=== PATIENT | male | born 1965 | race Caucasian/White ===

== ENCOUNTER 2020-01-15 12:25 | Inpatient (IN) | payer OTHER ==
--- NOTE | 2020-01-15 13:24 | BHS.RME ---
Substance Use & Tx History - Substance Use History Alcohol Substance amount: six pack beer Frequency of use: Daily Substance route: Oral Date of Last Use: 01/14/20 Heroin Substance amount: 3 bundles Frequency of use: Daily Substance route: Inhalation (ex: sniffing or snorting) Date of Last Use: 01/15/20 Marijuana/Hashish Substance amount: 1 blunt Frequency of use: Daily Substance route: Smoking Date of Last Use: 01/14/20 Nicotine Substance amount: 3-4 ciggs Frequency of use: Daily Substance route: Smoking Date of Last Use: 01/15/20 Physical/Psych/Mental Status - Behavior General Behavior: Increased activity (restlessness, agitation) Eye Contact: Normal - Cooperativeness Cooperativeness: Cooperative - Thinking Thought Processes: Tight, Logical, Goal Directed - Physical Health Problems Is patient presently having any pain?: No Does patient presently have any injuries (include location): No Does patient currently have a fever: No Is patient : No COWS - Scale Resting Pulse: 0= ID 80 or Below Sweatin=Flushed/Facial Moisture Restless Observation: 1= Difficult to Sit Still Pupil Size: 1= Pupils >than Normal Bone or Joint Aches: 2= Severe Diffuse Aches Runny Nose/ Eye Tearin= None GI Upset > 30mins: 2= Nausea/Diarrhea Tremor Observation: 1= Tremor [place], Not Seen Yawning Observation: 1= 1-2x During Session Anxiety or Irritability: 1=Feels Anxious/Irritable Goose Flesh Skin: 3=Piloerection COWS Score: 14 CIWA Nausea/Vomitin Muscle Tremors: 3 Anxiety: 3 Agitation: 2 Paroxysmal Sweats: 1-Minimal Palms Moist Orientation: 1-Uncertain about Date Tacttile Disturbances: 0-None Auditory Disturbances: 0-None Visual Disturbances: 0-None Headache: 2-Mild CIWA-Ar Total Score: 14
--- NOTE | 2020-01-15 15:44 | HP ---
COWS - Scale Resting Pulse: 0= [place] 80 or Below Sweatin=Flushed/Facial Moisture Restless Observation: 1= Difficult to Sit Still Pupil Size: 1= Pupils >than Normal Bone or Joint Aches: 2= Severe Diffuse Aches Runny Nose/ Eye Tearin= None GI Upset > 30mins: 2= Nausea/Diarrhea Tremor Observation: 1= Tremor [place], Not Seen Yawning Observation: 1= 1-2x During Session Anxiety or Irritability: 1=Feels Anxious/Irritable Goose Flesh Skin: 3=Piloerection COWS Score: 14 CIWA Score Nausea/Vomitin Muscle Tremors: 3 Anxiety: 3 Agitation: 2 Paroxysmal Sweats: 1-Minimal Palms Moist Orientation: 1-Uncertain about Date Tacttile Disturbances: 0-None Auditory Disturbances: 0-None Visual Disturbances: 0-None Headache: 2-Mild CIWA-Ar Total Score: 14 - Admission Criteria OASAS Guidelines: Admission for Medically Managed Detox: Requires at least one of the followin. CIWA greater than 12 2. Seizures within the past 24 hours 3. Delirium tremens within the past 24 hours 4. Hallucinations within the past 24 hours 5. Acute intervention needed for co occurring medical disorder 6. Acute intervention needed for co occurring psychiatric disorder 7. Severe withdrawal that cannot be handled at a lower level of care (continued vomiting, continued diarrhea, abnormal vital signs) requiring intravenous medication and/or fluids 8. Admitting History and Physical - Primary Care Physician PCP: Dr. Feliciano - Admission Chief Complaint: Detox History of Present Illness: Patient is a 54 y.o. male PMHx of asthma presenting to [facility] for substance abuse and detox. 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 No: HTN Pulmonary: Yes: Asthma Psych: Yes: Bipolar, Schizophrenia Admission ROS S - HPI Allergies/Adverse Reactions: Allergies Allergy/AdvReac Type Severity Reaction Status Date / Time No Known Allergies Allergy Verified 01/15/20 15:57 Exam Limitations: No Limitations - Ebola screening Have you traveled outside of the country in the last 21 days: No Have you had contact with anyone from an Ebola affected area: No Have you been sick,other than usual withdrawal symptoms: No Do you have a fever: No - Review of Systems Constitutional: Chills EENT: denies: Blurred Vision, Double Vision Respiratory: denies: Cough, Shortness of Breath Cardiac: denies: Chest Pain, Lightheadedness GI: reports: Nausea. denies: Constipated, Diarrhea Musculoskeletal: reports: Muscle Weakness Neuro: reports: Numbness, Tingling. denies: Headache, Seizure Psychiatric: reports: Judgement Intact, Mood/Affect Appropiate, Orientated x3 Patient History - Smoking Cessation Smoking history: Current every day smoker Initiated information on smoking cessation: Yes 'Breaking Loose' booklet given: 01/15/20 - Substances abused Alcohol Substance route: Oral Frequency: 3-6 times per week Amount used: 6pk beer Age of first use: 14 Date of last use: 01/14/20 Heroin Substance route: Inhalation Frequency: Daily Amount used: 3 bags Age of first use: 17 Date of last use: 01/15/20 Marijuana/Hashish Substance route: Smoking Frequency: Daily Amount used: 1 blunt Age of first use: 19 Date of last use: 01/14/20 Cocaine Substance route: Smoking Frequency: Daily Amount used: $20 Age of first use: 17 Date of last use: 01/14/20 Admission Physical Exam [facility] Physical General Appearance: Yes: Within Normal Limits, Nourished, Appropriately Dressed Respiratory: Yes: Within Normal Limits, Chest Non-Tender, Lungs Clear, Normal Breath Sounds, No Respiratory Distress Cardiology: Yes: Within Normal Limits, Regular Rhythm, Regular Rate Abdominal: Yes: Within Normal Limits, Normal Bowel Sounds, Non Tender, Flat, Soft Extremities: Yes: Swelling (non edematous) Neurological: Yes: Within Normal Limits, Fully Oriented, Alert, Normal Mood/Affect, Normal Response Integumentary: Yes: Normal Color - Diagnostic (1) Asthma Current Visit: Yes Status: Acute (2) Abuse, drug or alcohol Current Visit: Yes Status: Acute (3) AA (alcohol abuse) Current Visit: Yes Status: Acute (4) Heroin abuse Current Visit: Yes Status: Acute (5) Heroin use Current Visit: Yes Status: Acute (6) Marijuana use Current Visit: Yes Status: Acute (7) Nicotine dependence Current Visit: Yes Status: Acute (8) Schizophrenia Current Visit: Yes Status: Acute (9) Bipolar 1 disorder Current Visit: Yes Status: Acute Cleared for Admission S - Detox or Rehab [facility] Level of Care: Medically Managed Breathalyzer - Breathalyzer Breathalyzer: 0 Vital Signs - Vital Signs Vital signs refused: No Temperature: 98.6 F Pulse Rate: 68 Respiratory Rate: 18 Blood Pressure: 154/91 - Height Height: 1.73 m - Weight Weight: 73.482 kg - BMI Body Mass Index (BMI): 24.6 Urine Drug Screen - Test Device Lot number: [id number] Expiration date: 08/26/21 - Control Is test valid?: Yes - Results Drug screen NEGATIVE: No Urine drug screen results: THC-Marijuana, JIN-Cocaine, FEN-Fentanyl, MOP- Opiates, MTD-Methadone, BZO-Benzodiazepines Inpatient Rehab Admission - Rehab Decision to Admit Inpatient rehab admission?: No
[2020-01-15 15:50] VITALS: BMI 24.6
[2020-01-15] MEDS ORDERED: NICOTINE POLACRILEX 2 MG GUM BUC PRN (15:50)
[2020-01-15] MEDS ORDERED: MENTHOL/PHENOL 1 EACH UD MM PRN (15:50)
[2020-01-15] MEDS ORDERED: chlordiazePOXIDE HCL 25 MG CAPSULE PO PRN (15:50)
[2020-01-15] MEDS ORDERED: BISMUTH SUBSALICYLATE 524 MG/30 ML UD PO PRN (15:50)
[2020-01-15] MEDS ORDERED: MAGNESIUM HYDROX 2400MG/30ML ORAL SUSPENSION 30 ML CUP PO PRN (15:50)
[2020-01-15] MEDS ORDERED: IBUPROFEN 400 MG TABLET (FP) PO PRN (15:50)
[2020-01-15] MEDS ORDERED: MAGNESIUM CITRATE 300 ML BOTTLE PO PRN (15:50)
[2020-01-15] MEDS ORDERED: ACETAMINOPHEN 325 MG TABLET (FP) PO PRN (15:50)
[2020-01-15] MEDS ORDERED: cloNIDine HCL 0.1 MG TABLET PO PRN (15:50)
[2020-01-15] MEDS ORDERED: MAG HYDROX/AL HYDROX/SIMETH 30 ML UNIT-DOSE CUP PO PRN (15:50)
[2020-01-15] MEDS ORDERED: METHADONE HCL 10 MG TABLET (FOR DETOX USE ONLY) PO ONE (16:15)
[2020-01-15] MEDS ORDERED: ONDANSETRON *ODT* 4 MG TABLET SL ONE (16:30)
[2020-01-15] MEDS: hydrOXYzine PAMOATE 25 MG CAPSULE (FP) PO SCH ×2 (17:03→22:47)
[2020-01-15] MEDS: chlordiazePOXIDE HCL 25 MG CAPSULE PO SCH ×2 (17:04→22:47)
[2020-01-15] MEDS: METHOCARBAMOL 500 MG TABLET PO PRN (22:47)
[2020-01-15] MEDS: MELATONIN 5 MG TABLETS PO SCH (22:47)
[2020-01-15] MEDS: THIAMINE HCL 100 MG TABLET (FP) PO SCH (22:47)
[2020-01-16] MEDS: chlordiazePOXIDE HCL 25 MG CAPSULE PO SCH ×4 (06:08→23:13)
[2020-01-16] MEDS: hydrOXYzine PAMOATE 25 MG CAPSULE (FP) PO SCH ×5 (06:08→23:12)
--- NOTE | 2020-01-16 09:12 | PN ---
Teaching Attending Note Name of Resident: Darrian Galarza ATTENDING PHYSICIAN STATEMENT I saw and evaluated the patient. I reviewed the resident's note and discussed the case with the resident. I agree with the resident's findings and plan as documented. SUBJECTIVE: OBJECTIVE: ASSESSMENT AND PLAN: Agree with resident's findings and plan for detox.
[2020-01-16] MEDS ORDERED: METHADONE HCL 5 MG TABLET (FOR DETOX USE ONLY) ONE (09:18)
[2020-01-16] MEDS ORDERED: METHADONE HCL 10 MG TABLET (FOR DETOX USE ONLY) ONE (09:18)
[2020-01-16] MEDS ORDERED: METHADONE (DETOX) 20 MG, METHADONE (DETOX) 5 MG PO ONE (10:00)
[2020-01-16] MEDS: NICOTINE 7 MG/24 HOURS TOPICAL PATCH TD SCH (10:29)
[2020-01-16] MEDS: PRENATAL VITAMINS W/ FOLIC ACID TABLET (FP) PO SCH (10:29)
--- NOTE | 2020-01-16 10:56 | EKG ---
Test Reason : Blood Pressure : / mmHG Vent. Rate : 067 BPM Atrial Rate : 067 BPM P-R Int : 144 ms QRS Dur : 092 ms QT Int : 400 ms P-R-T Axes : 042 -01 039 degrees QTc Int : 422 ms NORMAL SINUS RHYTHM NONSPECIFIC INTRAVENTRICULAR CONDUCTION DEFECT NO PREVIOUS ECGS AVAILABLE Confirmed by ERASTO MILLARD MD ([id number]) on 01/16/2020 10:56:25 AM Referred By: Confirmed By:ERASTO MILLARD MD
[2020-01-16 11:11] LABS: HEMATOCRIT 40.5 % (35.4-49); HEMOGLOBIN 13.4 GM/dL (11.7-16.9); MCH 30.7 pg (25.7-33.7); MCHC 32.9 g/dl (32.0-35.9); MEAN CELL VOLUME 93.3 fl (80-96); MEAN PLT VOLUME 9.2 fl (7.5-11.1); PLATELET COUNT 224 K/MM3 (134-434); RBC 4.34 M/mm3 (4.00-5.60); RDW 13.3 % (11.9-15.9); WHITE BLOOD COUNT 6.7 K/mm3 (4.0-10.0)
--- NOTE | 2020-01-16 11:20 | PN ---
S CIWA - CIWA Score Nausea/Vomitin-Mild Nausea/No Vomiting Muscle Tremors: 3 Anxiety: 3 Agitation: 2 Paroxysmal Sweats: 1-Minimal Palms Moist Orientation: 0-Oriented Tacttile Disturbances: 1-Very Mild Itch/Numbness Auditory Disturbances: 0-None Visual Disturbances: 0-None Headache: 2-Mild CIWA-Ar Total Score: 13 BHS COWS - Scale Resting Pulse: 0= ID 80 or Below Sweatin= No chills or Flushing Restless Observation: 1= Difficult to Sit Still Pupil Size: 1= Pupils >than Normal Bone or Joint Aches: 2= Severe Diffuse Aches Runny Nose/ Eye Tearin= Nasal Congestion GI Upset > 30mins: 2= Nausea/Diarrhea Tremor Observation of Outstretched Hands: 2= Slight Tremor Visible Yawning Observation: 1= 1-2x During Session Anxiety or Irritability: 2=Irritable/Anxious Goose Flesh Skin: 0=Smooth Skin COWS Score: 12 S Progress Note (SOAP) Subjective: alert,irritable,anxious,interrupted sleep,pain in the body and back,nausea Objective: 01/16/20 11:18 Vital Signs Temperature 96.9 F L 01/16/20 08:18 Pulse Rate 55 L 01/16/20 08:18 Respiratory Rate 16 01/16/20 08:18 Blood Pressure 104/68 01/16/20 08:18 O2 Sat by Pulse Oximetry (%) 100 01/16/20 06:15 Laboratory Last Values WBC 6.7 K/mm3 (4.0-10.0) 01/16/20 08:10 RBC 4.34 M/mm3 (4.00-5.60) 01/16/20 08:10 Hgb 13.4 GM/dL (11.7-16.9) 01/16/20 08:10 Hct 40.5 % (35.4-49) 01/16/20 08:10 MCV 93.3 fl (80-96) 01/16/20 08:10 MCH 30.7 pg (25.7-33.7) 01/16/20 08:10 MCHC 32.9 g/dl (32.0-35.9) 01/16/20 08:10 RDW 13.3 % (11.9-15.9) 01/16/20 08:10 Plt Count 224 K/MM3 (134-434) 01/16/20 08:10 MPV 9.2 fl (7.5-11.1) 01/16/20 08:10 labs pending Assessment: 01/16/20 11:19 withdrawal signs and symptom Plan: continue detox methadone and librium regimen
[2020-01-16 11:32] LABS: ALBUMIN 2.9 g/dl (3.4-5.0); BILIRUBIN,TOTAL 0.2 mg/dL (0.2-1); BLOOD UREA NITROGEN 15.2 mg/dL (7-18); CALCIUM 8.6 mg/dL (8.5-10.1); TOT PROT 5.9 g/dl (6.4-8.2)
[2020-01-16] MEDS: MELATONIN 5 MG TABLETS PO SCH (23:12)
[2020-01-16] MEDS: THIAMINE HCL 100 MG TABLET (FP) PO SCH (23:13)
[2020-01-17] MEDS: hydrOXYzine PAMOATE 25 MG CAPSULE (FP) PO SCH ×5 (06:40→23:01)
[2020-01-17] MEDS: chlordiazePOXIDE HCL 25 MG CAPSULE PO SCH ×4 (06:41→23:02)
--- NOTE | 2020-01-17 09:08 | PN ---
[facility] CIWA - CIWA Score Nausea/Vomitin-No Nausea/No Vomiting Muscle Tremors: 2 Anxiety: 2 Agitation: 1-Slight > Activity Paroxysmal Sweats: 3 Orientation: 0-Oriented Tacttile Disturbances: 0-None Auditory Disturbances: 0-None Visual Disturbances: 0-None Headache: 1-Very Mild CIWA-Ar Total Score: 9 BHS COWS - Scale Resting Pulse: 0= [place] 80 or Below Sweatin= Chills/Flushing Restless Observation: 1= Difficult to Sit Still Pupil Size: 0= Normal to Room Light Bone or Joint Aches: 2= Severe Diffuse Aches Runny Nose/ Eye Tearin= None GI Upset > 30mins: 0= None Tremor Observation of Outstretched Hands: 2= Slight Tremor Visible Yawning Observation: 1= 1-2x During Session Anxiety or Irritability: 2=Irritable/Anxious Goose Flesh Skin: 0=Smooth Skin COWS Score: 9 BHS Progress Note (SOAP) Subjective: c/o anxiety, irritability, headache, shakes, sweats, and muscle aches. Objective: 01/17/20 09:07 Vital Signs 01/17/20 01/17/20 05:06 09:10 Temperature 98.4 F 98.2 F Pulse Rate 56 L 68 Respiratory 18 16 Rate Blood Pressure 110/62 113/61 O2 Sat by Pulse 97 Oximetry (%) Laboratory Last Values WBC 6.7 K/mm3 (4.0-10.0) 01/16/20 08:10 RBC 4.34 M/mm3 (4.00-5.60) 01/16/20 08:10 Hgb 13.4 GM/dL (11.7-16.9) 01/16/20 08:10 Hct 40.5 % (35.4-49) 01/16/20 08:10 MCV 93.3 fl (80-96) 01/16/20 08:10 MCH 30.7 pg (25.7-33.7) 01/16/20 08:10 MCHC 32.9 g/dl (32.0-35.9) 01/16/20 08:10 RDW 13.3 % (11.9-15.9) 01/16/20 08:10 Plt Count 224 K/MM3 (134-434) 01/16/20 08:10 MPV 9.2 fl (7.5-11.1) 01/16/20 08:10 Sodium 143 mmol/L (136-145) 01/16/20 08:10 Potassium 4.0 mmol/L (3.5-5.1) 01/16/20 08:10 Chloride 107 mmol/L (98-107) 01/16/20 08:10 Carbon Dioxide 31 mmol/L (21-32) 01/16/20 08:10 Anion Gap 5 MMOL/L (8-16) L 01/16/20 08:10 BUN 15.2 mg/dL (7-18) 01/16/20 08:10 Creatinine 1.0 mg/dL (0.55-1.3) 01/16/20 08:10 Est GFR (CKD-EPI)AfAm 97.08 01/16/20 08:10 Est GFR (CKD-EPI)NonAf 83.76 01/16/20 08:10 Random Glucose 128 mg/dL (74-106) H 01/16/20 08:10 Calcium 8.6 mg/dL (8.5-10.1) 01/16/20 08:10 Total Bilirubin 0.2 mg/dL (0.2-1) 01/16/20 08:10 AST 12 U/L (15-37) L 01/16/20 08:10 ALT 17 U/L (13-61) 01/16/20 08:10 Alkaline Phosphatase 97 U/L (45-117) 01/16/20 08:10 Total Protein 5.9 g/dl (6.4-8.2) L 01/16/20 08:10 Albumin 2.9 g/dl (3.4-5.0) L 01/16/20 08:10 Syphilis Serology Non-reactive (NONREACTIVE) 01/16/20 08:10 Labs noted. 01/17/20 09:25 Assessment: 01/17/20 09:07 AOX3, in no acute respiratory distress. Full ROM, ambulating in the unit. Withdrawal symptoms. Plan: continue detox.
[2020-01-17] MEDS ORDERED: METHADONE HCL 10 MG TABLET (FOR DETOX USE ONLY) PO ONE (10:00)
[2020-01-17] MEDS: PRENATAL VITAMINS W/ FOLIC ACID TABLET (FP) PO SCH (10:19)
[2020-01-17] MEDS: NICOTINE 7 MG/24 HOURS TOPICAL PATCH TD SCH (10:20)
[2020-01-17] MEDS: METHOCARBAMOL 500 MG TABLET PO PRN (10:21)
[2020-01-17] MEDS: MELATONIN 5 MG TABLETS PO SCH (23:01)
[2020-01-17] MEDS: THIAMINE HCL 100 MG TABLET (FP) PO SCH (23:02)
[2020-01-18] MEDS ORDERED: chlordiazePOXIDE HCL 10 MG CAPSULE PO PRN
[2020-01-18] MEDS: chlordiazePOXIDE HCL 10 MG CAPSULE PO SCH ×4 (05:29→22:49)
[2020-01-18] MEDS: hydrOXYzine PAMOATE 25 MG CAPSULE (FP) PO SCH ×5 (05:29→22:48)
[2020-01-18] MEDS ORDERED: ALBUTEROL SO4 HFA INHALER IH PRN (09:10)
--- NOTE | 2020-01-18 09:11 | PN ---
[facility] CIWA - CIWA Score Nausea/Vomitin-No Nausea/No Vomiting Muscle Tremors: 1-None Visible, but [place] Anxiety: 2 Agitation: 0-Normal Activity Paroxysmal Sweats: No Perspiration Orientation: 0-Oriented Tacttile Disturbances: 0-None Auditory Disturbances: 0-None Visual Disturbances: 2-Mild Sensitivity Headache: 1-Very Mild CIWA-Ar Total Score: 6 BHS COWS - Scale Resting Pulse: 0= [place] 80 or Below Sweatin= No chills or Flushing Restless Observation: 0= Sits Still Pupil Size: 1= Pupils >than Normal Bone or Joint Aches: 1= Mild Discomfort Runny Nose/ Eye Tearin= None GI Upset > 30mins: 1= Stomach Cramp Tremor Observation of Outstretched Hands: 1= Tremor [place], Not Seen Yawning Observation: 1= 1-2x During Session Anxiety or Irritability: 1=Feels Anxious/Irritable Goose Flesh Skin: 0=Smooth Skin COWS Score: 6 S Progress Note (SOAP) Subjective: 54 years old male was admitted on 01/15/20 for alcohol and opiate withdrawal sx management treating with librium and methadone detox regiments ate breakfast resting in bed discussing medication assisted treatment program encourage mr paige to consider MAT as well as behavior and psychosocial therapies [facility] admission for alcohol and opiate withdrawal Objective: 01/18/20 09:14 Vital Signs - 24 hr 01/17/20 01/17/20 01/17/20 13:08 16:44 20:59 Temperature 97.5 F L 97.7 F 97.5 F L Pulse Rate 61 65 61 Respiratory 18 18 18 Rate Blood Pressure 101/60 125/76 104/59 L O2 Sat by Pulse 98 96 Oximetry (%) 01/18/20 05:20 Temperature 98.3 F Pulse Rate 51 L Respiratory 18 Rate Blood Pressure 112/68 O2 Sat by Pulse 97 Oximetry (%) Laboratory Tests 01/15/20 01/16/20 01/16/20 16:15 08:10 08:10 WBC 6.7 RBC 4.34 Hgb 13.4 Hct 40.5 MCV 93.3 MCH 30.7 MCHC 32.9 RDW 13.3 Plt Count 224 MPV 9.2 Sodium Potassium Chloride Carbon Dioxide Anion Gap BUN Creatinine Est GFR (CKD-EPI)AfAm Est GFR (CKD-EPI)NonAf Random Glucose Calcium Total Bilirubin AST ALT Alkaline Phosphatase Total Protein Albumin Syphilis Serology Non-reactive COVID-19 ([facility]) Not detected 01/16/20 08:10 WBC RBC Hgb Hct MCV MCH MCHC RDW Plt Count MPV Sodium 143 Potassium 4.0 Chloride 107 Carbon Dioxide 31 Anion Gap 5 L BUN 15.2 Creatinine 1.0 Est GFR (CKD-EPI)AfAm 97.08 Est GFR (CKD-EPI)NonAf 83.76 Random Glucose 128 H Calcium 8.6 Total Bilirubin 0.2 AST 12 L ALT 17 Alkaline Phosphatase 97 Total Protein 5.9 L Albumin 2.9 L Syphilis Serology COVID-19 ([facility]) history of asthma ventolin rescue pump 01/18/20 09:16 random glucose elevation fasting pending Assessment: 01/18/20 09:16 alcohol and opiate withdrawal Plan: librium and methadone regiments
[2020-01-18] MEDS ORDERED: METHADONE HCL 10 MG TABLET (FOR DETOX USE ONLY) ONE (09:40)
[2020-01-18] MEDS ORDERED: METHADONE HCL 5 MG TABLET (FOR DETOX USE ONLY) ONE (09:40)
[2020-01-18] MEDS ORDERED: METHADONE (DETOX) 10 MG, METHADONE (DETOX) 5 MG PO ONE (10:00)
[2020-01-18] MEDS: PRENATAL VITAMINS W/ FOLIC ACID TABLET (FP) PO SCH (10:09)
[2020-01-18] MEDS: NICOTINE 7 MG/24 HOURS TOPICAL PATCH TD SCH (10:09)
[2020-01-18] MEDS: METHOCARBAMOL 500 MG TABLET PO PRN (10:10)
[2020-01-18] MEDS: MELATONIN 5 MG TABLETS PO SCH (22:48)
[2020-01-18] MEDS: THIAMINE HCL 100 MG TABLET (FP) PO SCH (22:49)
[2020-01-19] MEDS: hydrOXYzine PAMOATE 25 MG CAPSULE (FP) PO SCH ×6 (05:09→22:17)
[2020-01-19] MEDS: chlordiazePOXIDE HCL 10 MG CAPSULE PO SCH ×2 (05:09→18:00)
[2020-01-19] MEDS: ACETAMINOPHEN 325 MG TABLET (FP) PO PRN ×2 (05:10→18:01)
[2020-01-19] MEDS ORDERED: METHADONE HCL 10 MG TABLET (FOR DETOX USE ONLY) PO ONE (10:00)
[2020-01-19] MEDS: PRENATAL VITAMINS W/ FOLIC ACID TABLET (FP) PO SCH (10:12)
[2020-01-19] MEDS: METHOCARBAMOL 500 MG TABLET PO PRN (10:13)
[2020-01-19] MEDS: NICOTINE 7 MG/24 HOURS TOPICAL PATCH TD SCH (10:14)
--- NOTE | 2020-01-19 15:26 | PN ---
[facility] CIWA - CIWA Score Nausea/Vomitin-No Nausea/No Vomiting Muscle Tremors: 1-None Visible, but [place] Anxiety: 1-Mildly Anxious Agitation: 0-Normal Activity Paroxysmal Sweats: No Perspiration Orientation: 0-Oriented Tacttile Disturbances: 0-None Auditory Disturbances: 0-None Visual Disturbances: 1-Very Mild Sensitivity Headache: 0-None Present CIWA-Ar Total Score: 3 S COWS - Scale Resting Pulse: 1= [place] 81-100 Sweatin= No chills or Flushing Restless Observation: 0= Sits Still Pupil Size: 0= Normal to Room Light Bone or Joint Aches: 0= None Runny Nose/ Eye Tearin= None GI Upset > 30mins: 0= None Tremor Observation of Outstretched Hands: 1= Tremor [place], Not Seen Yawning Observation: 0= None Anxiety or Irritability: 1=Feels Anxious/Irritable Goose Flesh Skin: 0=Smooth Skin COWS Score: 3 S Progress Note (SOAP) Subjective: 54 years old male was admitted on 01/15/20 for alcohol and opiate withdrawal sx management treating with librium and methadone detox regiments ambulating with cane slow and steady mr davis states that naproxin works the best for knees pain "the doctor took out water from my knees" discontinue motrin begin naproxin Objective: 01/19/20 15:33 Vital Signs - 24 hr 01/18/20 01/18/20 01/19/20 16:24 20:21 04:58 Temperature 97.3 F L 98.6 F 97.7 F Pulse Rate 71 61 53 L Respiratory 18 18 17 Rate Blood Pressure 110/74 104/59 L 108/60 O2 Sat by Pulse 98 96 Oximetry (%) 01/19/20 01/19/20 08:35 12:25 Temperature 97.3 F L 97.1 F L Pulse Rate 62 82 Respiratory 18 18 Rate Blood Pressure 121/68 120/76 O2 Sat by Pulse 100 Oximetry (%) Laboratory Tests 01/15/20 01/16/20 01/16/20 16:15 08:10 08:10 WBC 6.7 RBC 4.34 Hgb 13.4 Hct 40.5 MCV 93.3 MCH 30.7 MCHC 32.9 RDW 13.3 Plt Count 224 MPV 9.2 Sodium Potassium Chloride Carbon Dioxide Anion Gap BUN Creatinine Est GFR (CKD-EPI)AfAm Est GFR (CKD-EPI)NonAf Random Glucose Fasting Glucose Calcium Total Bilirubin AST ALT Alkaline Phosphatase Total Protein Albumin Syphilis Serology Non-reactive COVID-19 ([facility]) Not detected 01/16/20 01/19/20 08:10 07:55 WBC RBC Hgb Hct MCV MCH MCHC RDW Plt Count MPV Sodium 143 Potassium 4.0 Chloride 107 Carbon Dioxide 31 Anion Gap 5 L BUN 15.2 Creatinine 1.0 Est GFR (CKD-EPI)AfAm 97.08 Est GFR (CKD-EPI)NonAf 83.76 Random Glucose 128 H Fasting Glucose 89 Calcium 8.6 Total Bilirubin 0.2 AST 12 L ALT 17 Alkaline Phosphatase 97 Total Protein 5.9 L Albumin 2.9 L Syphilis Serology COVID-19 ([facility]) lab noted Assessment: 01/19/20 15:34 alcohol and opiate withdrawal Plan: librium and methadone regiments
[2020-01-19] MEDS: MELATONIN 5 MG TABLETS PO SCH ×2 (22:14→22:18)
[2020-01-19] MEDS: THIAMINE HCL 100 MG TABLET (FP) PO SCH ×2 (22:14→22:18)
[2020-01-20] MEDS: METHOCARBAMOL 500 MG TABLET PO PRN (00:03)
[2020-01-20] MEDS: ACETAMINOPHEN 325 MG TABLET (FP) PO PRN (01:48)
[2020-01-20] MEDS ORDERED: chlordiazePOXIDE HCL 10 MG CAPSULE PO ONE (05:00)
[2020-01-20] MEDS ORDERED: METHADONE HCL 5 MG TABLET (FOR DETOX USE ONLY) PO ONE (06:00)
[2020-01-20 06:22] VITALS: BP 121/70; PULSE 58; TEMP 97.6
[2020-01-20] MEDS: hydrOXYzine PAMOATE 25 MG CAPSULE (FP) PO SCH (06:40)
--- NOTE | 2020-01-20 13:58 | DS ---
[facility] Detox Discharge Summary Admission Date: 01/15/20 Discharge Date: 01/20/20 - History Present History: Alcohol Dependence, Opioid Dependence Additional Comments: 54 years old male was admitted on 01/15/20 for alcohol and opiate withdrawal sx management treated with librium and methadone detox regiment mr davis has completed the librium and methadone detox regiment and is tolerated well ambulating with cane slow steady General Appearance: Yes: Within Normal Limits, Nourished, Appropriately Dressed Respiratory: Yes: Within Normal Limits, Chest Non-Tender, Lungs Clear, Normal Breath Sounds, No Respiratory Distress Cardiology: Yes: Within Normal Limits, Regular Rhythm, Regular Rate Abdominal: Yes: Within Normal Limits, Normal Bowel Sounds, Non Tender, Flat, Soft Extremities: Yes: Swelling (non edematous) Neurological: Yes: Within Normal Limits, Fully Oriented, Alert, Normal Mood/Affect, Normal Response Integumentary: Yes: Normal Color Pertinent Past History: time for discharge 35 minutes - Physical Exam Results Vital Signs: Vital Signs Temperature 97.6 F 01/20/20 06:21 Pulse Rate 58 L 01/20/20 06:21 Respiratory Rate 18 01/20/20 06:21 Blood Pressure 121/70 01/20/20 06:21 O2 Sat by Pulse Oximetry (%) 97 01/20/20 06:21 Pertinent Admission Physical Exam Findings: alcohol and opiate withdrawal Laboratory Tests 01/15/20 01/16/20 01/16/20 16:15 08:10 08:10 WBC 6.7 RBC 4.34 Hgb 13.4 Hct 40.5 MCV 93.3 MCH 30.7 MCHC 32.9 RDW 13.3 Plt Count 224 MPV 9.2 Sodium Potassium Chloride Carbon Dioxide Anion Gap BUN Creatinine Est GFR (CKD-EPI)AfAm Est GFR (CKD-EPI)NonAf Random Glucose Fasting Glucose Calcium Total Bilirubin AST ALT Alkaline Phosphatase Total Protein Albumin Syphilis Serology Non-reactive COVID-19 ([facility]) Not detected 01/16/20 01/19/20 08:10 07:55 WBC RBC Hgb Hct MCV MCH MCHC RDW Plt Count MPV Sodium 143 Potassium 4.0 Chloride 107 Carbon Dioxide 31 Anion Gap 5 L BUN 15.2 Creatinine 1.0 Est GFR (CKD-EPI)AfAm 97.08 Est GFR (CKD-EPI)NonAf 83.76 Random Glucose 128 H Fasting Glucose 89 Calcium 8.6 Total Bilirubin 0.2 AST 12 L ALT 17 Alkaline Phosphatase 97 Total Protein 5.9 L Albumin 2.9 L Syphilis Serology COVID-19 ([facility]) lab noted - Treatment Hospital Course: Detox Protocol Followed, Detoxed Safely, Responded well, Discharged Condition Good, Rehab Referral Accepted Patient has Accepted a Rehab Referral to: community support AA/NA - Medication Discharge Medications: Ambulatory Orders Naproxen [Naprosyn -] 500 mg PO BID 01/15/20 - Diagnosis (1) Alcohol dependence, uncomplicated Status: Acute (2) Substance induced mood disorder Status: Acute (3) Asthma Status: Chronic Qualifiers: Asthma severity: mild Asthma persistence: intermittent Asthma complication type: with status asthmaticus Qualified Code(s): J45.22 - Mild intermittent asthma with status asthmaticus (4) Nicotine dependence Status: Acute Qualifiers: Nicotine product type: cigarettes Substance use status: in withdrawal Qualified Code(s): F17.213 - Nicotine dependence, cigarettes, with withdrawal (5) Ambulates with cane Status: Chronic (6) Arthritis of both knees Status: Chronic - AMA Did Patient Leave Against Medical Advice: No CIWA Score - CIWA Score Nausea/Vomitin-No Nausea/No Vomiting Muscle Tremors: 1-None Visible, but [place] Anxiety: 0-No Anxiety, at Ease Agitation: 0-Normal Activity Paroxysmal Sweats: No Perspiration Orientation: 0-Oriented Tacttile Disturbances: 0-None Auditory Disturbances: 0-None Visual Disturbances: 0-None Headache: 0-None Present CIWA-Ar Total Score: 1 COWS (PN) - Opiate Withdrawal Resting Pulse: 0= [place] 80 or Below Sweatin= No chills or Flushing Restless Observation: 0= Sits Still Pupil Size: 0= Normal to Room Light Bone or Joint Aches: 0= None Runny Nose/ Eye Tearin= None GI Upset > 30mins: 0= None Tremor Observation of Outstretched Hands: 1= Tremor [place], Not Seen Yawning Observation: 0= None Anxiety or Irritability: 1=Feels Anxious/Irritable Goose Flesh Skin: 0=Smooth Skin COWS Score: 2
== END 2020-01-20 09:14 | disposition home or self-care (01) | DRG 773 ==
LOC: YASAS 12:25 → Y3N 15:47
PROVIDERS: ADMIT Allergy & Immunology; ATTEND Allergy & Immunology
PROC: HZ2ZZZZ Detoxification Services for Substance Abuse Treatment (ICD-10-PCS; principal; 2020-01-15)
DX: F10.230 Alcohol dependence with withdrawal, uncomplicated (principal); F11.23 Opioid dependence with withdrawal; F14.20 Cocaine dependence, uncomplicated; F12.20 Cannabis dependence, uncomplicated; F17.210 Nicotine dependence, cigarettes, uncomplicated; E78.5 Hyperlipidemia, unspecified; J45.998 Other asthma; M17.0 Bilateral primary osteoarthritis of knee; R73.9 Hyperglycemia, unspecified; Z99.89 Dependence on other enabling machines and devices
CPT/HCPCS: 36415; 71046-TC-FY; 80053; 82947; 85027; 86780; 93005; 93010; U0003

== ENCOUNTER 2024-01-14 14:22 | Inpatient (IN) | payer OTHER ==
[2024-01-14 15:25] VITALS: BMI 27.0
[2024-01-14] MEDS ORDERED: NALOXONE HCL 0.4 MG/ML VIAL IM PRN (17:23)
[2024-01-14] MEDS ORDERED: guaiFENesin 600 MG TABLET.ER (FP) PO PRN (17:23)
[2024-01-14] MEDS ORDERED: NICOTINE POLACRILEX 2 MG GUM BUC PRN (17:23)
[2024-01-14] MEDS ORDERED: ONDANSETRON *ODT* 4 MG TABLET SL PRN (17:23)
[2024-01-14] MEDS ORDERED: BISMUTH SUBSALICYLATE 524 MG/30 ML PO PRN (17:23)
[2024-01-14] MEDS ORDERED: IBUPROFEN 400 MG TABLET (FP) PO PRN (17:23)
[2024-01-14] MEDS ORDERED: BENZOCAINE/MENTHOL (CHLORASEPTIC ) LOZENGE MM PRN (17:23)
[2024-01-14] MEDS ORDERED: BENZONATATE 200 MG CAPSULE PO PRN (17:23)
[2024-01-14] MEDS ORDERED: MAGNESIUM HYDROX 2400MG/30ML ORAL SUSPENSION 30 ML CUP PO PRN (17:23)
[2024-01-14] MEDS ORDERED: POLYETHYLENE GLYCOL (HEALTHYLAX) 3350 17 GM PACKET PO PRN (17:23)
[2024-01-14] MEDS ORDERED: NALOXONE (NARCAN) HCL 4 MG/0.1 ML SPRAY NS PRN (17:23)
[2024-01-14] MEDS ORDERED: ACETAMINOPHEN 325 MG TABLET (FP) PO PRN (17:23)
[2024-01-14] MEDS ORDERED: LOPERAMIDE HCL 2 MG CAPSULE PO PRN (17:23)
[2024-01-14] MEDS ORDERED: MAG HYDROX/AL HYDROX/SIMETH 30 ML UNIT-DOSE CUP PO PRN (17:23)
[2024-01-14] MEDS: THIAMINE 100 MG TABLET PO SCH (22:29)
[2024-01-14] MEDS: MELATONIN 5 MG TABLETS PO SCH (22:29)
[2024-01-15] MEDS: methaDONE HCL 10 MG TABLET (FOR DETOX USE ONLY) PO ONE (10:39)
[2024-01-15] MEDS: NICOTINE 14 MG/24 HOURS TOPICAL PATCH TD SCH (10:40)
[2024-01-15] MEDS: PRENATAL VITAMINS W/ FOLIC ACID TABLET (FP) PO SCH (10:40)
[2024-01-15] MEDS: IBUPROFEN 600 MG TABLET (FP) PO PRN (10:41)
[2024-01-15 12:02] LABS: CHLORIDE 103 mmol/L (98-107); HEMATOCRIT 41.1 % (35.4-49); HEMOGLOBIN 13.9 GM/dL (11.7-16.9); MCHC 33.9 g/dl (32.0-35.9); MEAN CELL VOLUME 91.6 fl (80-96); MEAN PLT VOLUME 9.4 fl (7.5-11.1); PLATELET COUNT 210 10^3/uL (134-434); POTASSIUM 4.2 mmol/L (3.5-5.1); RBC 4.49 M/mm3 (4.00-5.60); RDW 13.8 % (11.9-15.9); SODIUM 139 mmol/L (136-145); WHITE BLOOD COUNT 7.3 K/mm3 (4.0-10.0)
[2024-01-15 12:04] LABS: ALBUMIN 3.1 g/dl (3.4-5.0); ANION GAP 4 mmol/L (4-13); CO2 32 mmol/L (21-32); GLUCOSE,RANDOM 112 mg/dL (74-106)
[2024-01-15 12:05] LABS: BLOOD UREA NITROGEN 17.4 mg/dL (7-18)
[2024-01-15 12:07] LABS: CREATININE 0.8 mg/dL (0.55-1.3)
[2024-01-15 12:08] LABS: SGOT/AST 11 U/L (15-37); SGPT/ALT 24 U/L (13-61)
[2024-01-15 12:09] LABS: BILIRUBIN,TOTAL 0.2 mg/dL (0.2-1); TOT PROT 6.4 g/dl (6.4-8.2)
[2024-01-15 12:10] LABS: ALK PHOS 123 U/L (45-117)
[2024-01-15] MEDS: cloNIDine HCL 0.1 MG TABLET PO PRN (13:04)
[2024-01-16] MEDS ORDERED: cloNIDine HCL 0.1 MG TABLET PO SCH (14:00)
[2024-01-16] MEDS ORDERED: methaDONE HCL 10 MG TABLET PO ONE (14:00)
[2024-01-16] MEDS ORDERED: methaDONE HCL 10 MG TABLET PO PRN (16:00)
[2024-01-17] MEDS: methaDONE 40 MG, methaDONE 10 MG PO ONE (09:23)
[2024-01-17] MEDS ORDERED: methaDONE HCL 10 MG TABLET (FOR DETOX USE ONLY) PO ONE (10:00)
[2024-01-17] MEDS: MELATONIN 5 MG TABLETS PO PRN (22:16)
[2024-01-18] MEDS ORDERED: cloNIDine HCL 0.1 MG TABLET PO PRN
[2024-01-18] MEDS: methaDONE 40 MG, methaDONE 20 MG PO ONE (09:04)
[2024-01-18] MEDS ORDERED: ALBUTEROL SO4 HFA INHALER IH PRN (12:26)
[2024-01-19] MEDS: methaDONE 40 MG, methaDONE 30 MG PO ONE (09:37)
[2024-01-19] MEDS ORDERED: methaDONE HCL 10 MG TABLET (FOR DETOX USE ONLY) PO ONE (10:00)
[2024-01-20] MEDS: methaDONE HCL 40 MG DISPERSABLE TABLET PO ONE (09:38)
[2024-01-20 10:20] VITALS: BP 142/87; PULSE 61; RESP 16; TEMP 99.5
[2024-01-21] MEDS ORDERED: methaDONE 80 MG, methaDONE 10 MG PO ONE (10:00)
== END 2024-01-20 10:05 | disposition home or self-care (01) | DRG 773 ==
LOC: YASAS 14:22 → Y6N 18:18
PROVIDERS: ADMIT Allergy & Immunology; ATTEND Psychiatry & Neurology Pain Medicine
PROC: HZ2ZZZZ Detoxification Services for Substance Abuse Treatment (ICD-10-PCS; principal; 2024-01-14)
DX: F11.23 Opioid dependence with withdrawal (principal); F10.230 Alcohol dependence with withdrawal, uncomplicated; F14.20 Cocaine dependence, uncomplicated; F17.210 Nicotine dependence, cigarettes, uncomplicated; F19.282 Other psychoactive substance dependence with psychoactive substance-induced sleep disorder; F19.24 Other psychoactive substance dependence with psychoactive substance-induced mood disorder; E78.5 Hyperlipidemia, unspecified; F20.9 Schizophrenia, unspecified; F31.9 Bipolar disorder, unspecified; M17.0 Bilateral primary osteoarthritis of knee; Z86.11 Personal history of tuberculosis; Z62.810 Personal history of physical and sexual abuse in childhood; Z63.8 Other specified problems related to primary support group
CPT/HCPCS: 36415; 71046-TC-FY; 80053; 80305; 80307; 85027; 86780; 86803; 93005; 93010